=== PATIENT | male | born 1985 | race African-American/Black ===

== ENCOUNTER 2023-12-12 10:40 | Inpatient (IN) | payer OTHER ==
[~2023-12-12] VITALS: Ht 182.9 cm; Wt 99.8 kg
[2023-12-12] MEDS ORDERED: IBUPROFEN 200 MG TABLET PO PRN (15:00)
[2023-12-12 16:43] VITALS: BP 135/88; TEMP 98.8; O2SAT 100
[2023-12-12 21:45] VITALS: BP 123/73; TEMP 98.8; O2SAT 99
[2023-12-12] MEDS: QUETIAPINE 300 MG PO SCH (22:00)
[2023-12-13 07:30] VITALS: BP 131/82; TEMP 98.1; O2SAT 98
[2023-12-13 20:00] VITALS: BP 122/81; TEMP 98.2; O2SAT 98
[2023-12-13] MEDS: QUETIAPINE FUMARATE 100 MG TABLET PO SCH (21:48)
[2023-12-14 07:30] VITALS: BP 122/80; TEMP 97.3; O2SAT 100
[2023-12-14 16:00] VITALS: BP 113/77; TEMP 98.4; O2SAT 99
[2023-12-14 20:00] VITALS: BP 120/80; TEMP 98.4; O2SAT 100
[2023-12-14] MEDS: ZOLPIDEM TARTRATE 10 MG TABLET PO PRN (21:04)
[2023-12-15 07:00] VITALS: BP 116/80; TEMP 97.7; O2SAT 100
[2023-12-15 16:00] VITALS: BP 132/82; TEMP 98.4; O2SAT 98
[2023-12-15 20:00] VITALS: BP 125/76; TEMP 97.9; O2SAT 96
[2023-12-15] MEDS: QUETIAPINE FUMARATE 100 MG TABLET PO SCH (22:10)
[2023-12-16 07:00] VITALS: BP 117/80; TEMP 98.4; O2SAT 99
[2023-12-16] MEDS: MAGNESIUM HYDROXIDE 30 ML UDC PO PRN (19:40)
[2023-12-16] MEDS: LORAZEPAM 1 MG TABLET FOR AGITATION PO PRN (19:52)
[2023-12-16 20:00] VITALS: BP 122/84; TEMP 98.3; O2SAT 99
[2023-12-16 21:23] VITALS: BP 122/84; TEMP 98.8; O2SAT 99
[2023-12-17 08:00] VITALS: BP 122/89; TEMP 98.1; O2SAT 100
[2023-12-17 20:00] VITALS: BP 118/75; TEMP 98.2; O2SAT 98
[2023-12-18 08:00] VITALS: BP 121/79; TEMP 97.7; O2SAT 98
[2023-12-18 16:00] VITALS: TEMP 97.9
[2023-12-18 20:21] VITALS: BP 134/93; TEMP 99; O2SAT 99
[2023-12-18] MEDS: QUETIAPINE FUMARATE 25 MG TABLET PO SCH (21:47)
[2023-12-19 07:57] VITALS: BP 117/79; TEMP 97.9; O2SAT 99
[2023-12-19 16:00] VITALS: BP 117/73; TEMP 98.2; O2SAT 98
[2023-12-19 23:55] VITALS: BP 106/61; TEMP 98.4; O2SAT 97
[2023-12-20 10:28] VITALS: BP 136/86; TEMP 94.9; O2SAT 98
[2023-12-20 21:24] VITALS: BP 114/64; TEMP 98.1; O2SAT 97
[2023-12-21 08:00] VITALS: BP 120/83; TEMP 97.7; O2SAT 99
[2023-12-21 21:35] VITALS: BP 100/64; TEMP 97.9; O2SAT 95
[2023-12-23 08:42] VITALS: BP 122/85; TEMP 98.8; O2SAT 100
[2023-12-23 20:00] VITALS: BP 114/78; TEMP 98.2; O2SAT 97
[2023-12-24 08:00] VITALS: BP 119/83; TEMP 97.5; O2SAT 97
[2023-12-24 16:00] VITALS: BP 122/70; TEMP 97.6; O2SAT 98
[2023-12-24 20:00] VITALS: BP 122/78; TEMP 97.8; O2SAT 100
[2023-12-24] MEDS: MAG HYDROX/AL HYDROX/SIMETH 30 ML UDC PO PRN (23:05)
[2023-12-25 08:00] VITALS: BP 123/74; TEMP 98.2; O2SAT 100
[2023-12-25 20:00] VITALS: BP 113/73; TEMP 99; O2SAT 99
[2023-12-25 20:19] VITALS: BP 113/73; TEMP 99; O2SAT 99
[2023-12-26 08:00] VITALS: BP 119/84; TEMP 97.9; O2SAT 100
[2023-12-26 16:00] VITALS: BP 116/74; TEMP 98.2; O2SAT 99
[2023-12-26 20:00] VITALS: BP_SYST 109; BP_SYST 145; BP_DIAS 71; BP_DIAS 75; TEMP 100; TEMP 97.7; O2SAT 95; O2SAT 96
[2023-12-27 08:00] VITALS: BP 116/81; TEMP 97.9; O2SAT 100
[2023-12-27 16:22] VITALS: BP 118/65; TEMP 98.4; O2SAT 99
[2023-12-27 20:00] VITALS: BP 119/76; TEMP 98.4; O2SAT 98
[2023-12-28 08:15] VITALS: BP 114/72; TEMP 98.2; O2SAT 100
[2023-12-28 20:00] VITALS: BP 113/74; TEMP 98.4; O2SAT 99
[2023-12-29] MEDS: INVEST MED CVL-231-2002 PO SCH (10:06)
[2023-12-30 23:45] VITALS: BP 131/87; TEMP 97.7; O2SAT 99
[2023-12-31 08:00] VITALS: BP 129/91; TEMP 97.9; O2SAT 99
[2023-12-31 20:00] VITALS: BP 120/85; TEMP 98.1; O2SAT 100
[2024-01-01 20:00] VITALS: BP 123/82; TEMP 98.2; O2SAT 99
[2024-01-01 20:10] VITALS: BP 123/82; TEMP 98.2; O2SAT 99
[2024-01-02 08:00] VITALS: BP 126/86; TEMP 97.9; O2SAT 96
[2024-01-02 20:00] VITALS: BP 130/82; TEMP 97.9; O2SAT 98
[2024-01-03 16:00] VITALS: BP 132/86; TEMP 97.7; O2SAT 98
[2024-01-03 20:00] VITALS: BP 111/74; TEMP 98.1; O2SAT 97
[2024-01-03 20:08] VITALS: BP 111/74; TEMP 98.1; O2SAT 97
[2024-01-04 08:00] VITALS: BP_SYST 119; BP_SYST 122; BP_DIAS 81; BP_DIAS 84; TEMP 97.9; O2SAT 96; O2SAT 98
[2024-01-04] MEDS ORDERED: ZOLPIDEM TARTRATE 10 MG TABLET PO PRN (13:00)
[2024-01-04 16:00] VITALS: BP 122/76; TEMP 98.1; O2SAT 98
[2024-01-05 08:49] VITALS: BP 119/85; TEMP 97.5; O2SAT 98
[2024-01-05 12:40] VITALS: BP 119/84; TEMP 97.9; O2SAT 98
[2024-01-05 16:12] VITALS: BP 119/84; TEMP 97.6; O2SAT 98
[2024-01-05 20:00] VITALS: BP 116/82; TEMP 97.7; O2SAT 98
[2024-01-08 19:57] VITALS: BP 126/83; TEMP 97.7; O2SAT 96
[2024-01-08 20:00] VITALS: BP 126/83; TEMP 97.7; O2SAT 96
[2024-01-09 07:35] VITALS: BP 126/88; TEMP 98.2; O2SAT 98
[2024-01-09 08:00] VITALS: BP 122/78; TEMP 99.1; O2SAT 96
[2024-01-09 16:00] VITALS: BP 107/57; TEMP 98.3; O2SAT 100
[2024-01-10] MEDS: LORAZEPAM 1 MG TABLET FOR AGITATION PO PRN (03:40)
[2024-01-10 20:31] VITALS: BP 117/79; TEMP 98.1; O2SAT 98
[2024-01-11 22:30] VITALS: BP 137/95; TEMP 98.1; O2SAT 95
[2024-01-12 20:30] VITALS: BP 136/83; TEMP 98.1; O2SAT 96
[2024-01-14 00:07] VITALS: BP 99/62; TEMP 98; O2SAT 96
[2024-01-14 07:00] VITALS: BP 122/92; TEMP 98.2; O2SAT 98
[2024-01-14] MEDS: QUETIAPINE FUMARATE 100 MG TABLET ONE (09:54)
[2024-01-14 16:00] VITALS: BP 118/82; TEMP 98.1; O2SAT 93
[2024-01-14 22:00] VITALS: BP 125/85; TEMP 97.6; O2SAT 98
[2024-01-15] MEDS: LORAZEPAM 1 MG TABLET FOR AGITATION PO PRN (06:31)
[2024-01-15 08:00] VITALS: BP 137/94; TEMP 98.1; O2SAT 97
[2024-01-16 16:00] VITALS: BP 98/56; TEMP 97.7; O2SAT 96
[2024-01-16] MEDS: ACETAMINOPHEN ES 500 MG TABLET PO PRN (18:57)
[2024-01-16 20:00] VITALS: BP 99/61; TEMP 98.1; O2SAT 96
[2024-01-16] MEDS: ZOLPIDEM TARTRATE 10 MG TABLET PO PRN (20:55)
[2024-01-17 10:20] VITALS: BP 132/63; TEMP 98.1; O2SAT 97
[2024-01-17 20:00] VITALS: BP 121/86; TEMP 97.8; O2SAT 97
[2024-01-18 08:00] VITALS: BP 126/83; TEMP 98.2; O2SAT 99
[2024-01-18 16:00] VITALS: BP 108/95; TEMP 98.6; O2SAT 97
[2024-01-20 08:00] VITALS: BP 121/81; TEMP 97.9; O2SAT 97
[2024-01-20 20:14] VITALS: BP 129/86; TEMP 97.3; O2SAT 97
[2024-01-20] MEDS: ZOLPIDEM TARTRATE 10 MG TABLET PO PRN (21:33)
[2024-01-21] MEDS: LORAZEPAM 1 MG TABLET FOR AGITATION PO PRN (13:56)
[2024-01-21 20:10] VITALS: BP 129/89; TEMP 98.1; O2SAT 99
[2024-01-22 22:00] VITALS: BP 123/92; TEMP 98.2; O2SAT 98
[2024-01-23 00:20] VITALS: BP 123/92; TEMP 98.2; O2SAT 98
[2024-01-23 20:00] VITALS: BP 115/73; TEMP 98.2; O2SAT 96
[2024-01-25 08:00] VITALS: BP 121/78; TEMP 98.1; O2SAT 98
[2024-01-25 16:00] VITALS: BP 110/70; TEMP 98.2; O2SAT 97
[2024-01-25 20:00] VITALS: BP 127/84; TEMP 98.4; O2SAT 97
[2024-01-25] MEDS: ZOLPIDEM TARTRATE 10 MG TABLET PO PRN (21:08)
[2024-01-26 23:00] VITALS: BP 123/81; TEMP 97.8; O2SAT 97
[2024-01-26 23:30] VITALS: BP 123/81; TEMP 97.8; O2SAT 97
[2024-01-27 08:00] VITALS: BP 127/81; TEMP 97.7; O2SAT 97
[2024-01-27] MEDS: LORAZEPAM 1 MG TABLET FOR AGITATION PO PRN (11:18)
[2024-01-27 22:14] VITALS: BP 120/77; TEMP 98.6; O2SAT 95
[2024-01-28 20:00] VITALS: BP 114/67; TEMP 98.2; O2SAT 96
[2024-01-29 15:57] VITALS: BP 123/80; TEMP 98; O2SAT 97
[2024-01-29 20:00] VITALS: BP 96/57; TEMP 98.6
[2024-01-29 21:10] VITALS: BP 96/57; TEMP 98.6; O2SAT 97
[2024-01-30 08:00] VITALS: BP 123/92; TEMP 98.3; O2SAT 96
[2024-01-31 07:40] VITALS: BP 124/86; TEMP 97.9; O2SAT 96
[2024-01-31 08:00] VITALS: BP 121/80; TEMP 97.5; O2SAT 96
[2024-01-31 20:55] VITALS: BP 121/82; TEMP 98.2; O2SAT 95
[2024-01-31] MEDS: ZOLPIDEM TARTRATE 10 MG TABLET PO PRN (21:00)
[2024-02-01] MEDS: LORAZEPAM 1 MG TABLET FOR AGITATION PO PRN (13:22)
[2024-02-02 20:00] VITALS: BP 127/94; TEMP 97.8; O2SAT 96
[2024-02-03 07:55] VITALS: BP 134/83; TEMP 98.1; O2SAT 95
[2024-02-03 08:30] VITALS: BP 121/82; TEMP 98.2; O2SAT 100
[2024-02-04 08:18] VITALS: BP 124/89; TEMP 98.4; O2SAT 98
[2024-02-04 20:00] VITALS: BP 126/93; TEMP 97.9; O2SAT 97
[2024-02-05 20:00] VITALS: BP 130/89; TEMP 98.1; O2SAT 98
[2024-02-08] MEDS ORDERED: ZOLPIDEM TARTRATE 10 MG TABLET PO PRN (13:00)
[2024-02-08] MEDS ORDERED: LORAZEPAM 1 MG TABLET FOR AGITATION PO PRN (13:00)
== END 2024-02-07 08:00 | disposition home or self-care (01) | DRG 951 ==
LOC: EDSTATUS 10:42 → MED 14:26 → UNDODISIN 02-02 00:59
PROVIDERS: ADMIT Psychiatry & Neurology Psychiatry; ATTEND Psychiatry & Neurology Psychiatry
DX: Z00.6 Encounter for examination for normal comparison and control in clinical research program (principal); F20.0 Paranoid schizophrenia; Z79.899 Other long term (current) drug therapy; K59.00 Constipation, unspecified; G43.909 Migraine, unspecified, not intractable, without status migrainosus
CPT/HCPCS: A6253; G0378

== ENCOUNTER 2024-02-02 01:06 | Emergency (ER) | payer MEDICAID, OTHER ==
[~2024-02-02] VITALS: Ht 182.9 cm; Wt 102.1 kg
[2024-02-02 01:40] LABS: BASOPHILS % (AUTO) 0.7 % (0.0-2.0); EOSINOPHILS % (AUTO) 0.3 % (0.0-6.0); HEMATOCRIT 35 % (39-51); HEMOGLOBIN 11.1 g/dL (13.5-17.5); LYMPHOCYTES % (AUTO) 25.5 % (20.0-44.0); MEAN CORPUSCULAR HEMOGLOBIN 25 PG (26.0-33.0); MEAN CORPUSCULAR HGB CONC 32 g/dl (31.0-36.0); MEAN CORPUSCULAR VOLUME 78 fL (80-96); MONOCYTES # (AUTO) 0.3 K/uL (0.1-1.30); MONOCYTES % (AUTO) 7.7 % (2.0-12.0); NEUTROPHILS # (AUTO) 2.7 K/uL (1.8-8.9); NEUTROPHILS % (AUTO) 65.8 % (43.0-81.0); PLATELET COUNT (AUTO) 324 K/uL (150-450); RED BLOOD CELL COUNT(AUTO) 4.47 MIL/uL (4.5-6.0); RED CELL DISTRIBUTION WIDTH 18.6 % (11.5-15.0); WHITE BLOOD COUNT (AUTO) 4.1 K/uL (4.3-11.0)
[2024-02-02] MEDS ORDERED: HYDROCODONE/APAP 10/325MG TABLET ONE (01:48)
[2024-02-02] MEDS: HYDROCODONE/APAP 10/325MG TABLET PO ONE (01:51)
[2024-02-02 01:55] LABS: ALBUMIN 3.2 g/dL (3.4-5.0); BILIRUBIN,TOTAL 0.3 mg/dL (0.2-1.0); CALCIUM, SERUM 8.6 mg/dL (8.5-10.1); CREATININE 0.9 mg/dL (0.6-1.3); TOTAL PROTEIN, SERUM 7.9 g/dL (6.4-8.2)
[2024-02-02] MEDS: ONDANSETRON 4 MG TAB.RAPDIS PO ONE (02:00)
[2024-02-02] MEDS ORDERED: MORPHINE SULFATE INJ 4 MG/ML DISP.SYRIN ONE (02:05)
[2024-02-02] MEDS ORDERED: ONDANSETRON 4 MG TAB.RAPDIS ONE (02:06)
[2024-02-02] MEDS: MORPHINE SULFATE INJ 2 MG/ML DISP.SYRIN IM ONE (02:15)
[2024-02-02 02:42] LABS: POTASSIUM 3.6 mmol/L (3.5-5.1)
[2024-02-02] MEDS: IV NS 0.9% 1,000 ML IV ONE (02:43)
[2024-02-02] MEDS: MAG HYDROX/AL HYDROX/SIMETH 30 ML UDC PO ONE (02:55)
[2024-02-02 02:59] VITALS: BP 128/72; TEMP 98; O2SAT 98
== END 2024-02-02 03:01 | disposition still patient (30) ==
LOC: ER 01:13
DX: R51.9 Headache, unspecified (principal); F17.210 Nicotine dependence, cigarettes, uncomplicated; F12.10 Cannabis abuse, uncomplicated
CPT/HCPCS: 36415; 80053-TC; 85025-TC; G0480; J2270; Q0162